=== PATIENT | female | born 1950 | race Caucasian/White ===

== ENCOUNTER → 2017-01-21 | Outpatient (CLI) | payer OTHER, MEDICARE | END | disposition home or self-care (01) | LOC: CFH 14:00 | PROVIDERS: ATTEND Family Medicine | DX: R92.8 Other abnormal and inconclusive findings on diagnostic imaging of breast (principal); N63 Unspecified lump in breast; N64.89 Other specified disorders of breast | CPT/HCPCS: G0206-LT ==

== ENCOUNTER → 2017-03-10 | Outpatient (CLI) | payer OTHER, MEDICARE ==
[~2017-03-10] MED LIST: ALBU8.5H3 INH; CALC-126 PO; CHOL3000 PO; LISI-167 PO; MELO-184 PO; MULT-658 PO; ROSU10TA PO; TRAM50TA2 PO
[2017-03-10 12:42] LABS: ASPARTATE AMINO TRANSFERASE 18 U/L (15-37); BLOOD UREA NITROGEN 11 mg/dL (7-18)
== END | disposition home or self-care (01) ==
LOC: STAR 11:06
PROVIDERS: ATTEND Thoracic Surgery (Cardiothoracic Vascular Surgery)
DX: Z01.818 Encounter for other preprocedural examination (principal); R94.31 Abnormal electrocardiogram [ECG] [EKG]; K80.10 Calculus of gallbladder with chronic cholecystitis without obstruction; K40.30 Unilateral inguinal hernia, with obstruction, without gangrene, not specified as recurrent; I10 Essential (primary) hypertension; E78.00 Pure hypercholesterolemia, unspecified; Z79.899 Other long term (current) drug therapy
CPT/HCPCS: 36415; 80053; 93005

== ENCOUNTER 2017-03-24 06:31 | Day surgery (SDC) | payer OTHER, MEDICARE ==
[2017-03-10 11:52] VITALS: BP 112/74
[~2017-03-24] VITALS: Ht 175.3 cm; Wt 99.8 kg
[~2017-03-24 06:31] MED LIST changes: -ALBU8.5H3 INH; +ALBU8.5H8 INH; -MELO-184 PO; +MELO15TA24 PO
[2017-03-24] MEDS ORDERED: BUPIVACAINE/PF 0.5% ONE (06:49)
[2017-03-24] MEDS ORDERED: EPINEPHRINE 1 MG/ML, 1ML ONE (06:49)
[2017-03-24] MEDS ORDERED: MIDAZOLAM 1 MG/ML, 2ML ONE ×2 (07:00→10:20)
[2017-03-24] MEDS ORDERED: FENTANYL PF 100 MCG/2ML ONE ×5 (07:00→10:20)
[2017-03-24] MEDS ORDERED: LACTATED RINGERS 1,000 ML IV SCH ×2 (07:36→10:00)
[2017-03-24 07:39] VITALS: BP 112/74
[2017-03-24] MEDS ORDERED: ZOLP-413 PO (07:39)
[2017-03-24] MEDS ORDERED: ACET325T14 PO (07:39)
[2017-03-24] MEDS ORDERED: LIDOCAINE 1%, 2ML SQ PRN (08:00)
[2017-03-24] MEDS ORDERED: DEXAMETHASONE 4 MG/ML, 1ML ONE (08:47)
[2017-03-24] MEDS ORDERED: ONDANSETRON 2MG/ML, 2ML ONE ×2 (08:47)
[2017-03-24] MEDS ORDERED: GLYCOPYRROLATE 0.2MG/1ML, 5ML ONE (08:47)
[2017-03-24] MEDS ORDERED: ALBUTEROL SULFATE 200 PUFFS/8.5 GR INH ONE (08:47)
[2017-03-24] MEDS ORDERED: SUCCINYLCHOLINE 20 MG/ML, 10ML ONE (08:47)
[2017-03-24] MEDS ORDERED: PROPOFOL 10 MG/ML, 20ML ONE (08:47)
[2017-03-24] MEDS ORDERED: CEFAZOLIN 1,000 MG ONE (08:47)
[2017-03-24] MEDS ORDERED: NEOSTIGMINE 1 MG/ML, 10ML ONE (08:47)
[2017-03-24] MEDS ORDERED: ROCURONIUM 10 MG/ML ONE (08:47)
[2017-03-24] MEDS ORDERED: ACETAMINOPHEN 325 MG TABLET PO PRN (09:00)
[2017-03-24] MEDS ORDERED: ONDANSETRON 2MG/ML, 2ML IVPush PRN ×2 (09:00→10:00)
[2017-03-24] MEDS ORDERED: KETOROLAC 30 MG/1 ML IV PRN (09:00)
[2017-03-24] MEDS ORDERED: OXYcodone 5 MG/5 ML ORAL.SOL UDC PO PRN (09:00)
[2017-03-24] MEDS ORDERED: BUPIVACAINE/PF-EPI 0.5% 1:200K IM ONE (09:13)
[2017-03-24] MEDS ORDERED: HYDROcodone/APAP 5/325 TABLET PO PRN (10:00)
[2017-03-24] MEDS ORDERED: morphine SULFATE 10 MG/ML, 1ML IVPush PRN (10:00)
[2017-03-24] MEDS ORDERED: HYDROmorphone 1 MG/ML, 1ML ONE ×2 (10:04→10:20)
[2017-03-24] MEDS: FENTANYL PF 100 MCG/2ML IV PRN ×4 (10:05→10:42)
[2017-03-24] MEDS ORDERED: OXYcodone 5 MG/5 ML ORAL.SOL UDC ONE (10:05)
[2017-03-24] MEDS: HYDROmorphone 1 MG/ML, 1ML IV PRN ×4 (10:09→10:36)
[2017-03-24] MEDS: MIDAZOLAM 1 MG/ML, 2ML IV PRN ×2 (10:15→10:36)
[2017-03-24] MEDS ORDERED: MORPHINE SULFATE 4 MG/ML, 1ML ONE (12:55)
[2017-03-24] MEDS ORDERED: ALBUTEROL SULFATE 2.5 MG/3 ML NPPB PRN (13:30)
[2017-03-24] MEDS ORDERED: MIDAZOLAM 1 MG/ML, 2ML IV PRN (16:00)
== END 2017-03-24 14:40 ==
LOC: OUT 06:31
PROVIDERS: ATTEND Thoracic Surgery (Cardiothoracic Vascular Surgery)
DX: K80.10 Calculus of gallbladder with chronic cholecystitis without obstruction (principal); K40.30 Unilateral inguinal hernia, with obstruction, without gangrene, not specified as recurrent; E78.00 Pure hypercholesterolemia, unspecified; I10 Essential (primary) hypertension; E66.01 Morbid (severe) obesity due to excess calories; Z68.32 Body mass index [BMI] 32.0-32.9, adult; Z98.890 Other specified postprocedural states; Z90.710 Acquired absence of both cervix and uterus; Z72.89 Other problems related to lifestyle
CPT/HCPCS: 47562; 49507; 88304; C1781; J0171; J0330; J0690; J1100; J1170; J2250; J2270; J2405; J2704; J2710; J3010; J3490; J7120

== ENCOUNTER 2017-06-23 08:26 | Inpatient (IN) | payer OTHER, MEDICARE ==
[~2017-06-23] VITALS: Ht 175.3 cm; Wt 109.0 kg
[~2017-06-23 08:26] MED LIST changes: +ACET325T14 PO; +ZOLP-413 PO
[2017-06-23] MEDS ORDERED: LACTATED RINGERS 1,000 ML IV SCH (09:05)
[2017-06-23] MEDS ORDERED: PROMETHAZINE 25 MG/ML, 1ML IV PRN (09:30)
[2017-06-23] MEDS ORDERED: hydrALAzine 20 MG/ML, 1ML IV PRN (09:30)
[2017-06-23] MEDS ORDERED: ACETAMINOPHEN 500 MG TABLET PO ONE (09:30)
[2017-06-23] MEDS ORDERED: ACETAMINOPHEN 325 MG TABLET PO PRN (09:30)
[2017-06-23] MEDS ORDERED: ALBUTEROL SULFATE 2.5 MG/3 ML NPPB PRN (09:30)
[2017-06-23] MEDS ORDERED: VANCOMYCIN 1,800 MG in SODIUM CHLORIDE 0.9% 250 ML IV ONE (09:30)
[2017-06-23] MEDS ORDERED: GABAPENTIN 300 MG CAPSULE PO ONE (09:30)
[2017-06-23] MEDS ORDERED: LABETALOL 5MG/ML, 20ML IV PRN (09:30)
[2017-06-23] MEDS ORDERED: OXYcodone 5 MG/5 ML ORAL.SOL UDC PO PRN (09:30)
[2017-06-23] MEDS ORDERED: VANCOMYCIN PER PHARMACY MC PRN (09:30)
[2017-06-23] MEDS ORDERED: EPHEDRINE 50 MG/ML, 1ML IVPush PRN (09:30)
[2017-06-23] MEDS ORDERED: METOPROLOL 1 MG/ML, 5ML IV PRN (09:30)
[2017-06-23] MEDS ORDERED: ONDANSETRON 2MG/ML, 2ML IVPush PRN (09:30)
[2017-06-23] MEDS ORDERED: MEPERIDINE/PF 25MG/0.5ML IVPush PRN (09:30)
[2017-06-23 09:37] VITALS: BP 112/72
[2017-06-23] MEDS ORDERED: MELA10TA3 PO (09:54)
[2017-06-23] MEDS ORDERED: BUPIVACAINE LIPOSOME/PF INFIL ONE (10:40)
[2017-06-23] MEDS ORDERED: TRANEXAMIC ACID 100 MG/ML, 10ML ONE ×2 (11:05)
[2017-06-23] MEDS ORDERED: KETOROLAC 60 MG/2 ML ONE (11:05)
[2017-06-23] MEDS ORDERED: EPINEPHRINE 1 MG/ML, 1ML ONE (11:06)
[2017-06-23] MEDS ORDERED: ROPIvacaine/PF 0.2%, 20 ML ONE (11:06)
[2017-06-23] MEDS ORDERED: SODIUM CHLORIDE 0.9% 100 ML ONE (11:06)
[2017-06-23] MEDS ORDERED: ONDANSETRON 2MG/ML, 2ML ONE (11:35)
[2017-06-23] MEDS ORDERED: NEOSTIGMINE 1 MG/ML, 10ML ONE (11:35)
[2017-06-23] MEDS ORDERED: GLYCOPYRROLATE 0.2MG/1ML, 5ML ONE (11:35)
[2017-06-23] MEDS ORDERED: CEFAZOLIN 1,000 MG ONE (11:35)
[2017-06-23] MEDS ORDERED: PROPOFOL 10 MG/ML, 20ML ONE (11:35)
[2017-06-23] MEDS ORDERED: MIDAZOLAM 1 MG/ML, 2ML ONE (11:35)
[2017-06-23] MEDS ORDERED: ROCURONIUM 10 MG/ML,10ML ONE (11:35)
[2017-06-23] MEDS ORDERED: DEXAMETHASONE 4 MG/ML, 1ML ONE (11:35)
[2017-06-23] MEDS ORDERED: FENTANYL PF 250 MCG/5ML ONE (11:35)
[2017-06-23] MEDS ORDERED: ALBUTEROL HFA 90 MCG/SPRAY INH PRN (13:00)
[2017-06-23] MEDS ORDERED: ONDANSETRON 2MG/ML, 2ML IV PRN (13:00)
[2017-06-23] MEDS ORDERED: ALUMINUM/MAG/SIMETHICONE 30 ML UDC PO PRN (13:00)
[2017-06-23] MEDS ORDERED: ACETAMINOPHEN 650 MG/20.3 ML UDC PO PRN (13:00)
[2017-06-23] MEDS ORDERED: DIPHENHYDRAMINE 50 MG CAPSULE PO PRN (13:00)
[2017-06-23] MEDS ORDERED: ZOLPIDEM 5MG TABLET PO PRN (13:00)
[2017-06-23] MEDS ORDERED: SENNA/DOCUSATE TABLET PO PRN (13:00)
[2017-06-23] MEDS ORDERED: MAGNESIUM HYDROXIDE 8%, 30ML UDC PO PRN (13:00)
[2017-06-23] MEDS ORDERED: BISACODYL 10 MG SUPP PR PRN (13:00)
[2017-06-23] MEDS ORDERED: morphine SULFATE 10 MG/ML, 1ML IV PRN (13:00)
[2017-06-23] MEDS ORDERED: HYDROcodone/APAP 5/325 TABLET PO PRN (13:00)
[2017-06-23] MEDS ORDERED: ONDANSETRON 4 MG TABLET PO PRN (13:00)
[2017-06-23] MEDS ORDERED: HYDROmorphone 1 MG/ML, 1ML ONE ×2 (13:04→13:22)
[2017-06-23] MEDS ORDERED: OXYcodone 5 MG/5 ML ORAL.SOL UDC ONE (13:04)
[2017-06-23] MEDS ORDERED: FENTANYL PF 100 MCG/2ML ONE ×2 (13:04→13:22)
[2017-06-23] MEDS ORDERED: ACETAMINOPHEN 650 MG/20.3 ML UDC ONE (13:04)
[2017-06-23] MEDS: HYDROmorphone 1 MG/ML, 1ML IV PRN ×4 (13:10→14:02)
[2017-06-23] MEDS: FENTANYL PF 100 MCG/2ML IV PRN ×4 (13:11→13:53)
[2017-06-23] MEDS: DIAZEPAM 5 MG TABLET PO PRN (13:51)
[2017-06-23] MEDS ORDERED: hydrALAzine 20 MG/ML, 1ML ONE (13:56)
[2017-06-23 14:50] VITALS: BP 124/83
[2017-06-23] MEDS: KETOROLAC 30 MG/1 ML IV SCH (17:22)
[2017-06-23] MEDS: OXYcodone IR 5MG TABLET PO PRN ×2 (17:22→21:30)
[2017-06-23] MEDS: D5%-0.45NACL+KCL 20MEQ 1,000 ML IV SCH (17:22)
[2017-06-23 19:00] VITALS: BP 124/81
[2017-06-23] MEDS: CEFAZOLIN PMX 2GM/50ML 50 ML IVPB SCH (19:33)
[2017-06-23] MEDS: DOCUSATE 100 MG CAPSULE PO SCH (21:01)
[2017-06-24 00:11] VITALS: BP 95/56
[2017-06-24] MEDS: KETOROLAC 30 MG/1 ML IV SCH ×2 (01:00→08:47)
[2017-06-24] MEDS: OXYcodone IR 5MG TABLET PO PRN ×4 (01:21→13:19)
[2017-06-24] MEDS: CEFAZOLIN PMX 2GM/50ML 50 ML IVPB SCH (03:22)
[2017-06-24] MEDS: D5%-0.45NACL+KCL 20MEQ 1,000 ML IV SCH ×2 (03:29→09:21)
[2017-06-24 04:51] VITALS: BP 93/55
[2017-06-24 05:22] LABS: HEMATOCRIT 28.9 % (34.6-47.8); HEMOGLOBIN 10.2 g/dL (11.7-16.4)
[2017-06-24] MEDS ORDERED: ASPIRIN 81 MG TABLET EC PO SCH (06:00)
[2017-06-24 07:40] VITALS: BP 113/69
[2017-06-24] MEDS: DOCUSATE 100 MG CAPSULE PO SCH (08:47)
[2017-06-24] MEDS ORDERED: LISINOPRIL 10 MG TABLET PO SCH (09:00)
[2017-06-24] MEDS ORDERED: OXYC5TAB3 PO (12:27)
[2017-06-24] MEDS ORDERED: ASPI-621 PO (12:27)
[2017-06-24 13:10] VITALS: BP 130/54
[2017-06-24] MEDS ORDERED: ASPI-496 PO (13:45)
[2017-06-24] MEDS ORDERED: OXYC10TA6 PO (13:47)
[2017-06-24 15:46] VITALS: BP 136/87
[2017-06-24] MEDS: DIAZEPAM 5 MG TABLET PO PRN (15:50)
[2017-06-24] MEDS ORDERED: KETOROLAC 30 MG/1 ML IV SCH (17:00)
== END 2017-06-24 16:30 | disposition home or self-care (01) | DRG 470 ==
LOC: ORIP 08:26 → MERGE 11:30 → 4NOR 14:55
PROVIDERS: ADMIT Orthopaedic Surgery Adult Reconstructive Orthopaedic Surgery; ATTEND Orthopaedic Surgery Adult Reconstructive Orthopaedic Surgery
PROC: 0SRC0J9 Replacement of Right Knee Joint with Synthetic Substitute, Cemented, Open Approach (ICD-10-PCS; principal; 2017-06-23 11:30)
PROC: 5A09357 Assistance with Respiratory Ventilation, Less than 24 Consecutive Hours, Continuous Positive Airway Pressure (ICD-10-PCS; 2017-06-24)
DX: M17.11 Unilateral primary osteoarthritis, right knee (principal)
CPT/HCPCS: 36415; 85014; 85018; C1713; C9290; J0171; J0690; J1100; J1170; J1885; J2250; J2405; J2704; J2710; J2795; J3010; J3370; J3490; C1776; J0360; J3480; J7050; J7120